=== PATIENT | female | born 1985 | race Caucasian/White ===

== ENCOUNTER 2024-07-12 14:45 | Emergency (ER) | payer SELFPAY ==
[~2024-07-12] VITALS: Ht 149.9 cm; Wt 54.4 kg
[2024-07-12 15:31] LABS: BASOPHILS # (AUTO) 0.1 K/UL (0.0-0.2); BASOPHILS % (AUTO) 0.6 % (0.0-2.0); EOSINOPHILS # (AUTO) 0.8 K/uL (0.0-0.7); EOSINOPHILS % (AUTO) 7.7 % (0.0-7.0); HEMATOCRIT 39.9 % (31.2-41.9); HEMOGLOBIN 13.4 g/dL (10.9-14.3); LYMPHOCYTES # (AUTO) 2.1 K/uL (0.8-4.8); LYMPHOCYTES % (AUTO) 19.5 % (20.5-51.5); MEAN CORPUSCULAR HEMOGLOBIN 31.9 uug (24.7-32.8); MEAN CORPUSCULAR HGB CONC 34 g/dL (32.3-35.6); MEAN CORPUSCULAR VOLUME 95.4 fL (75.5-95.3); MONOCYTES % (AUTO) 8.9 % (0.0-11.0); NEUTROPHILS # (AUTO) 6.8 K/uL (1.8-8.9); NEUTROPHILS % (AUTO) 63.3 % (38.5-71.5); PLATELET COUNT (AUTO) 340 K/uL (179-408); RED BLOOD CELL COUNT(AUTO) 4.18 MIL/uL (3.63-4.92); RED CELL DISTRIBUTION WIDTH 13.6 % (12.3-17.7); WHITE BLOOD COUNT (AUTO) 10.7 K/uL (3.8-11.8)
[2024-07-12 15:41] LABS: DIFFERENTIAL COMMENT 1
[2024-07-12 15:50] LABS: CALCIUM 8.9 mg/dL (8.5-10.1); CREATININE 0.8 mg/dL (0.6-1.3); POTASSIUM 3.6 mmol/L (3.5-5.1)
[2024-07-12 16:06] LABS: ALBUMIN 3.2 g/dL (3.4-5.0); BILIRUBIN,DIRECT 0.1 mg/dL (0.0-0.2); BILIRUBIN,TOTAL 0.3 mg/dL (0.2-1.0); TOTAL PROTEIN, SERUM 7.1 g/dL (6.4-8.2)
[2024-07-12] MEDS ORDERED: CYANOCOBALAMIN 1000 MCG/ML VIAL ONE (17:14)
[2024-07-12] MEDS: CYANOCOBALAMIN 1000 MCG/ML VIAL IM ONE (17:16)
[2024-07-12 17:29] VITALS: BP 142/86; O2SAT 97
== END 2024-07-12 17:31 | disposition home or self-care (01) ==
LOC: ER 14:45
DX: E53.8 Deficiency of other specified B group vitamins (principal); Z88.5 Allergy status to narcotic agent
CPT/HCPCS: 99283; 80076; 80048; 82607; 85025; 36415; 96372; J3420; A4606; A4663